=== PATIENT | female | born 2000 | race African-American/Black ===

== ENCOUNTER 2023-12-25 08:36 | Emergency (ER) | payer MEDICAID ==
[~2023-12-25] VITALS: Ht 165.1 cm; Wt 45.5 kg
[2023-12-25 08:39] VITALS: TEMP 98
[2023-12-25] MEDS ORDERED: Acetaminophen 500 MG TAB PO ONE (09:00)
[2023-12-25 10:02] VITALS: BP 123/90; PULSE 69
== END 2023-12-25 10:02 | disposition home or self-care (01) ==
LOC: COL.ER 08:36
DX: S00.511A Abrasion of lip, initial encounter (principal); M25.512 Pain in left shoulder; M79.602 Pain in left arm; R51.9 Headache, unspecified; M79.605 Pain in left leg; F17.210 Nicotine dependence, cigarettes, uncomplicated; V89.2XXA Person injured in unspecified motor-vehicle accident, traffic, initial encounter; Y92.410 Unspecified street and highway as the place of occurrence of the external cause

== ENCOUNTER 2023-12-29 14:26 | Emergency (ER) | payer MEDICAID ==
[~2023-12-29] VITALS: Ht 165.1 cm; Wt 81.8 kg
[2023-12-29 14:39] VITALS: BP 119/77; TEMP 98.4
[2023-12-29 16:09] VITALS: PULSE 79
== END 2023-12-29 16:13 | disposition home or self-care (01) ==
LOC: COL.ER 14:26
DX: S43.402A Unspecified sprain of left shoulder joint, initial encounter (principal); V89.2XXA Person injured in unspecified motor-vehicle accident, traffic, initial encounter; Y92.410 Unspecified street and highway as the place of occurrence of the external cause

== ENCOUNTER → 2024-06-13 | Outpatient (CLI) | payer MEDICAID ==
[2024-06-13 09:37] LABS: BASO % 0.5 % (0.0-2.0); EOS # 0.1 K/mm3 (0.0-0.7); EOS % 1.1 % (0.0-4.0); GRAN # 5.1 K/mm3 (1.4-6.5); GRAN % 60.4 % (42.2-75.2); HEMATOCRIT 37.8 % (37.0-47.0); HEMOGLOBIN 12.8 g/dl (12.5-16.0); LYMPH # 2.4 K/mm3 (1.2-3.4); LYMPH % 29.1 % (20.0-51.0); MEAN CELL VOLUME 94 fl (80.0-100.0); MEAN CORPUSCULAR HEMOGLOBIN 32 pg (27-31); MEAN CORPUSCULAR HGB CONC 34 g/dl (33.0-37.0); MEAN PLATELET VOLUME 10.3 fl (7.4-10.4); MONO # 0.7 K/mm3 (0.1-0.6); MONO % 8.5 % (1.7-9.3); PLATELET COUNT 285 K/mm3 (130-400); RED BLOOD COUNT 4.01 M/mm3 (4.10-5.30)
[2024-06-13 09:55] LABS: ALBUMIN 3.7 g/dL (3.5-5.0); BILIRUBIN,TOTAL 0.5 mg/dL (0.2-1.2); CALCIUM 9.9 mg/dL (8.4-10.2); CHOLESTEROL RISK RATIO 2.8; CREATININE, serum 0.74 mg/dL (0.57-1.11); TOTAL PROTEIN 7.8 g/dl (6.2-8.1)
[2024-06-13 10:34] LABS: THYROID STIMULATING HORMONE 2.854 uIU/mL (0.350-4.940)
== END ==
LOC: COL.LAB 08:46
PROVIDERS: Physician Assistant
DX: N92.6 Irregular menstruation, unspecified (principal); R53.83 Other fatigue; Z68.33 Body mass index [BMI] 33.0-33.9, adult